=== PATIENT | male | born 1995 | race Caucasian/White ===

== ENCOUNTER 2017-03-03 22:53 | Observation (INO) | payer BC ==
[~2017-03-03] VITALS: Ht 177.8 cm; Wt 100.3 kg
--- NOTE | ~2017-03-03 | HP ---
[facility] 22 Y [address] ROOM: [place] [address] LOCATION: GPCU ADMIT DATE: 03/04/2017 History & Physical DISCHARGE DATE: FAMILY PHYSICIAN: Debi Downey MD ATTENDING PHYSICIAN: TONJA SEAY DATE OF SERVICE: PRIMARY CARE PHYSICIAN: None. CHIEF COMPLAINT: Nausea, vomiting, and diarrhea. HISTORY OF PRESENT ILLNESS: This is a 22-year-old male, who presented to the ER with nausea, vomiting, and diarrhea. The patient states that he started having diarrhea, nausea, and vomiting sometime this evening. He has had multiple episodes of vomiting more than 10 and also multiple episodes of diarrhea more than 10. He describes his stool as watery with some red tinge to it. He currently is dry heaving even after treatment with medications in the ER. He also complains of generalized abdominal pain, worse in the mid upper abdomen radiating through his back. No chest pain or shortness of breath reported. He is lightheaded when he stands up. Denies any head trauma, loss of consciousness, or seizures. Denies any fever history. No other complaints at this point in time. REVIEW OF SYSTEMS: A 10-point review of systems was done and was otherwise negative except as mentioned above. HOME MEDICATIONS: None. ALLERGIES: PENICILLIN. SOCIAL HISTORY: Nonsmoker, occasional alcohol is reported. PAST MEDICAL HISTORY: 1. Anxiety disorder. 2. Panic attack. 3. Depression. PAST SURGICAL HISTORY: PATIENT'S NAME: JEOVANY, [facility] AGE: 22 Y [address] ROOM: [place] [address] LOCATION: GPCU ADMIT DATE: 03/04/2017 History & Physical DISCHARGE DATE: FAMILY PHYSICIAN: Debi Downey MD ATTENDING PHYSICIAN: TONJA SEAY None. PHYSICAL EXAMINATION: VITAL SIGNS: Temperature 99.8, pulse 85 and regular, respirations 16, blood pressure 137/84, saturation 96% on room air. GENERAL: The patient is alert and oriented x3, follows all commands. Moves all extremities, in no acute distress. HEENT: Head: Normocephalic, atraumatic. Pupils are equal, round, reactive to light. Extraocular muscles are intact. Nares clear. Throat clear. Mucous membranes are dry. NECK: Supple. No nuchal rigidity. HEART: Regular rate and rhythm. LUNGS: Clear to auscultation bilaterally. ABDOMEN: Soft, nontender, and nondistended. Bowel sounds are present. EXTREMITIES: No clubbing, cyanosis, or edema. VASCULAR: Pulses are 2+ distally bilaterally. NEUROLOGIC: The patient is alert and oriented x3, follows all commands. Moves all extremities. Cranial nerves 2 through 12 grossly intact. DIAGNOSTIC STUDIES: Lactate 2.7. Troponin I pending. CBC done in the ER showed a white count of 16.8, hemoglobin 16.7, hematocrit 48.4, platelets 283. A CMP showed sodium 142, potassium 3.6, chloride 108, bicarb 18, BUN 19, creatinine 1.0, glucose 116, calcium 9.4, total protein is 8.6, albumin 4.4, AST 17, ALT 30, alkaline phosphatase 101. Total bilirubin 0.5. Anion gap 19.6, globulin 4.2, GFR more than 60. PT 11.0, INR 1.0, and PTT 25. UA showed specific gravity 1.010 with a pH of 5.0, otherwise negative. Procalcitonin level 0.20, amylase 107, lipase 967. Chest x-ray was done and showed no acute cardiopulmonary abnormality. CT abdomen and pelvis with contrast was done and was found to be normal. EKG showed sinus rhythm with a rate of 82 beats per minute and no acute ST changes. LABORATORY DATA: Blood culture is pending. Urine culture pending. Stool studies were done in the ER and was found to be negative for C diff and O and P screen. Fecal WBC showed moderate white blood cells. Fecal occult blood test was positive. ASSESSMENT AND PLAN: A 22-year-old male, presenting with nausea, vomiting, diarrhea, and dehydration. 1. Nausea, vomiting, and diarrhea. The patient currently appears dehydrated. I will hydrate him aggressively with IV fluids. 2. Dehydration. Hydrate aggressively with IV fluids. 3. Leukocytosis. The patient appears to have viral versus bacterial illness at this point of time. His white count is elevated. I will place him on PATIENT'S NAME: DEBI THAYER [facility] AGE: 22 Y [address] ROOM: [place] [address] [facility] ADMIT DATE: 03/04/2017 History & Physical DISCHARGE DATE: FAMILY PHYSICIAN: Debi Downey MD ATTENDING PHYSICIAN: TONJA SEAY. Cultures are pending. Monitor for cultures. 4. Questionable pancreatitis. The patient has elevated lipase, but no changes on CT abdomen. Currently, his pain is very well controlled. We will keep him n.p.o. for now. Hydrate with IV fluids and Zofran for nausea. 5. Deep vein thrombosis prophylaxis. SCDs to legs. 6. Code status: FULL CODE. Discussed with the patient at the time of admission. TONJA SEAY MD MT/rosie /[id number] D: [id number] T: [id number] HISTORY & PHYSICAL
--- NOTE | ~2017-03-03 | ER ---
[facility] 22 Y [address] ROOM: [place] [address] LOCATION: [facility] ADMIT DATE: 03/03/2017 ER/Outpatient Report DISCHARGE DATE: FAMILY PHYSICIAN: Debi Downey MD ATTENDING PHYSICIAN: Ronaldo Lake Admission date and time are documented on the medical record. I saw the patient at 2315 hours. CHIEF COMPLAINT: Nausea, vomiting, diarrhea, anxiety, and abdominal pain. HISTORY OF PRESENT ILLNESS: This patient is a 22-year-old male who comes in with a 2-hour history of nausea, vomiting, and diarrhea. He has had 7 episodes of vomiting and 7 episodes of diarrhea prior to coming in the emergency room. He had diarrhea and vomiting here in the emergency department. He has generalized abdominal pain worse in the midupper abdomen and radiates through to his back. No chest pain or shortness of breath. No lightheadedness, dizziness, syncope, or near syncope. No fall or trauma. No headache, eyes, ears, nose, throat, neck, or spine pain. No urinary symptoms. No joint or muscle swelling, redness, or pain. No skin eruptions or rash. The patient does have a history of anxiety, panic attacks, probably depression, but no psychosis. No endocrine problems. No neuro changes. No skin eruptions or rash. HOME MEDICATIONS: None. ALLERGIES: PENICILLIN. SOCIAL HISTORY: Nonsmoker. Does drink alcohol. SIGNIFICANT PAST MEDICAL HISTORY: Anxiety, panic attacks, and depression. OPERATIONS: None. REVIEW OF SYSTEMS: All systems reviewed by me are negative with the exception of those discussed in the history of the present illness. PHYSICAL EXAMINATION: PATIENT'S NAME: JEOVANY, [facility] AGE: 22 Y [address] ROOM: [place] [address] LOCATION: [facility] ADMIT DATE: 03/03/2017 ER/Outpatient Report DISCHARGE DATE: FAMILY PHYSICIAN: Debi Downey MD ATTENDING PHYSICIAN: Ronaldo Lake VITAL SIGNS: Temperature 98.3, tympanic, pulse 89, respirations 26, blood pressure 157/80, and O2 sat on room air is 100%. HEAD: Normocephalic. EYES, EARS, NOSE, THROAT: Clear. Mucous membranes moist. NECK: Negative. SPINE: Negative. LUNGS: Clear. No rales, rhonchi, or wheezes. HEART: Regular. Pulses are palpable. ABDOMEN: Soft, generalized tenderness especially in the midupper abdomen. No palpable masses. No bowel tones. No organomegaly or abnormal mass palpable. No CVA tenderness. EXTREMITIES: Intact. NEUROVASCULAR: Intact. SKIN: Clear. No skin eruptions or rash. IMAGING STUDIES: Three way abdominal x-ray showed no perforation, obstruction, or acute lung infiltrate. We will review x-ray with the radiologist. LABORATORY DATA: CMS was normal except for a slight low potassium of 3.6, low CO2 content of 18, elevated anion gap at 19.6, elevated glucose of 116, amylase was elevated at 107, and lipase was elevated at 967. White count was 16,800, 86 segs, 6 lymphs, 7 monos, 1 eo, hemoglobin was 16.7 with hematocrit of 48.4, and platelet count is 283,000. Stool was sent down for PCR and it showed no Giardia, no cryptosporidium, C. diff was negative, moderate white cells, and positive blood. Culture pending. EMERGENCY DEPARTMENT COURSE: I did start the patient on IV normal saline, fluids, gave him 2 L of normal saline here in the emergency department. I gave him Zofran IV for nausea, Phenergan IM for nausea, vomiting, and Dilaudid for pain. IMPRESSION: 1. Pancreatitis with abdominal pain, nausea, and vomiting. 2. Diarrhea. 3. Anxiety with a history of panic attacks. PLAN: Discuss the patient with Dr. Carlson, hospitalist. We will admit the patient to Med/Surg. Continue bowel rest and IV fluids. Discussed ensued with the patient and his concerning my findings and recommendations, they understand. PATIENT'S NAME: DEBI THAYER [facility] AGE: 22 Y [address] ROOM: [place] [address] LOCATION: [facility] ADMIT DATE: 03/03/2017 ER/Outpatient Report DISCHARGE DATE: FAMILY PHYSICIAN: Debi Downey MD ATTENDING PHYSICIAN: Ronaldo Lake MD MEGHANA GONZALEZ/modl /[id number] d: 03/04/17 0211 t: 03/04/17 1826, OUTPATIENT REPORT
--- NOTE | ~2017-03-03 | DS ---
PAT[facility]'S NAME: [facility] AGE: 22 Y [address] ROOM: [address] [address] LOCATION: [facility] ADMIT DATE: 03/04/2017 Discharge Summary DISCHARGE DATE: 03/05/2017 FAMILY PHYSICIAN: Debi Downey MD ATTENDING PHYSICIAN: Markos Carlson PRINCIPAL DIAGNOSIS: Infectious diarrhea. OTHER DIAGNOSES: 1. Nausea, vomiting, and dehydration. 2. Acute pancreatitis. HOSPITAL COURSE: A 22-year-old gentleman with no significant past medical history, was admitted with severe nausea, vomiting, and bloody diarrhea. He also complained of abdominal pain and a CAT scan of the abdomen was obtained, which was unremarkable. On initial evaluation, he was found to be hemoconcentrated. A CAT scan of the abdomen was done, which was unremarkable. He was found to have elevated lipase level around 950. He was admitted and stool studies were done, which were negative for C diff, but they were significant for occult blood as well as WBCs. We were not able to identify any infectious organism in this point, but given he was having temperature and bloody diarrhea including white cells in his stools, we treated it as infectious gastroenteritis with IV ciprofloxacin and Flagyl. He was aggressively volume resuscitated. On the day of the discharge, he was not having any more blood in the diarrhea and his stooling improved. He was discharged home on oral Flagyl as well as ciprofloxacin for 5 days. DISCHARGE MEDICATIONS: 1. Flagyl 500 mg p.o. q.8 hours for 5 days. 2. Ciprofloxacin 500 mg p.o. b.i.d. for 5 days. 3. Zofran 4 mg q.6 hours p.r.n. for nausea, vomiting, and diarrhea. ACTIVITIES: As tolerated. DIET: Advance diet as tolerated. DISCHARGE INSTRUCTIONS: The patient was instructed to come back to the emergency department if the stooling gets worse or if the symptoms return. MD RUSSELL ALFREDO/rosie PATIENT'S NAME: JEOVANY, [facility] AGE: 22 Y [address] ROOM: [address] [place], [place] [address] LOCATION: [facility] ADMIT DATE: 03/04/2017 Discharge Summary DISCHARGE DATE: 03/05/2017 FAMILY PHYSICIAN: Debi Downey MD ATTENDING PHYSICIAN: Markos Carlson /[id number] d: 03/06/17 0643 t: 03/07/17 1526, DISCHARGE SUMMARY
[2017-03-04 00:01] LABS: BASOPHIL % 0.2 %; EOSINOPHIL # 0.2 K/uL (0.0-0.5); EOSINOPHIL % 0.9 %; HEMATOCRIT 48.4 % (37.0-53.0); HEMOGLOBIN 16.7 g/dL (12.0-17.0); IMMATURE GRANULOCYTE # 0.1 K/uL (0.0-0.3); IMMATURE GRANULOCYTE % 0.4 %; LYMPHOCYTE % 5.7 %; MCH 29.4 pg (27.0-34.0); MCHC 34.5 gm/dL (32.0-36.5); MCV 85.2 fl (83.0-98.0); MONOCYTE # 1.2 K/uL (0.0-1.0); MONOCYTE % 6.9 %; MPV 9.8 fl (9.4-12.4); NEUTROPHIL # (ANC) 14.4 K/uL (1.4-9.0); NEUTROPHIL % 85.9 %; NRBC % 0 /100WBC (0-0.00); PLATELET COUNT 283 K/uL (150-450); RBC 5.68 M/uL (4.00-6.00); RDW-CV 11.8 % (11.9-14.6)
[2017-03-04 00:02] LABS: WBC 16.8 K/uL (4.0-11.0)
[2017-03-04 00:20] LABS: ALBUMIN 4.4 gm/dL (3.5-5.0); ALK PHOS 101 IU/L (33-138); ALT 30 IU/L (12-78); ANION GAP 19.6 (10.0-19.0); AST 17 IU/L (10-40); BLOOD UREA NITROGEN 19 mg/dL (6-24); CALCIUM 9.4 mg/dL (8.5-10.5); CHLORIDE 108 mMol/L (96-110); CO2 18 mMol/L (22-32); ESTIMATED GFR (MDRD EQUATION) > 60; POTASSIUM 3.6 mMol/L (3.7-5.1); SODIUM 142 mMol/L (135-145); TOTAL BILIRUBIN 0.5 mg/dL (0.0-1.5); TOTAL PROTEIN 8.6 g/dL (6.0-8.4)
[2017-03-04 02:23] LABS: BILIRUBIN URINE NEGATIVE (NEGATIVE); BLOOD URINE NEGATIVE /UL (NEGATIVE); GLUCOSE URINE NEGATIVE (NEGATIVE); KETONE URINE 15 mg/dL (NEGATIVE); LEUKOCYTES URINE NEGATIVE /UL (NEGATIVE); NITRITE URINE NEGATIVE (NEGATIVE); PROTEIN URINE NEGATIVE (NEGATIVE); UROBILINOGEN URINE NORMAL (NORMAL)
[2017-03-04 02:30] LABS: COLOR URINE YELLOW (YELLOW); TURBIDITY URINE CLEAR (CLEAR)
[2017-03-04] MEDS ORDERED: ADVIL200 M1 PO (03:44)
--- NOTE | 2017-03-04 04:16 | NUR ---
PATIENT ADMITTED WITH PANCREATITIS. STATES HE HAS HAD NAUSEA/VOMITTING/DIARRHEA BEGINNING YESTERDAY AFTERNOON. ELEVATED LYPASE/AMYLASE. EDUCATED PATIENT ON USE OF CALL LIGHT. AT BEDSIDE. IV R) HAND. EMESIS OF 100ML ZOFRAN GIVEN. BMx1 LIQUID
[2017-03-04 05:39] LABS: HEMATOCRIT 42.4 % (37.0-53.0); HEMOGLOBIN 14.5 g/dL (12.0-17.0); MCH 29.6 pg (27.0-34.0); MCHC 34.2 gm/dL (32.0-36.5); MCV 86.5 fl (83.0-98.0); MPV 9.9 fl (9.4-12.4); PLATELET COUNT 244 K/uL (150-450); WBC 10.8 K/uL (4.0-11.0)
[2017-03-04 05:54] LABS: ALBUMIN 3.4 gm/dL (3.5-5.0); ALK PHOS 76 IU/L (33-138); ALT 23 IU/L (12-78); BLOOD UREA NITROGEN 15 mg/dL (6-24); CALCIUM 8.1 mg/dL (8.5-10.5); CHLORIDE 111 mMol/L (96-110); CO2 20 mMol/L (22-32); ESTIMATED GFR (MDRD EQUATION) > 60; TOTAL BILIRUBIN 0.5 mg/dL (0.0-1.5); TOTAL PROTEIN 6.7 g/dL (6.0-8.4)
[2017-03-04 05:55] LABS: ANION GAP 16.2 (10.0-19.0); AST 18 IU/L (10-40); POTASSIUM 4.2 mMol/L (3.7-5.1)
[2017-03-04 05:56] LABS: SODIUM 143 mMol/L (135-145)
[2017-03-04 07:17] LABS: ABSOLUTE NEUTROPHIL CT (ANC) 10.3 K/uL (1.4-9.0); BANDED NEUTROPHIL # 3.8 K/uL (0.0-0.1); BANDED NEUTROPHILS % 35 %; LYMPHOCYTE # 0.3 K/uL (0.8-4.0); LYMPHOCYTE % 3 %; MONOCYTE # 0.4 K/uL (0.0-1.0); SEGMENTED NEUTROPHIL # 6.5 K/uL (1.4-9.0); SEGMENTED NEUTROPHIL % 60 %
--- NOTE | 2017-03-04 13:37 | NUR ---
PATIENT TRANSFERED TO 3N ROOM 3315 VIA WHEELCHAIR ACCOMPANIED BY FAMILY, RN AND BELONGINGS. VERBAL REPORT GIVEN TO PIA TRIPLETT AT BEDSIDE. NS CONTINUED AT 100ML/HR VIA R) HAND PIV WITH ANTIBIOTIC CURRENTLY RUNNING SCHEDULED. DILAUDID 0.2MG IVP GIVEN LAST AT 1300 PRIOR TO TRANSFER. UP TO BATHROOM AD BEVERLEY WITH VOID AND LOOSE BM X1. NO EMESIS THIS SHIFT. LAST TEMP 100.2 AT 1145. RECHECKED ON 3N WITH IMPROVEMENT OF 99.2. TELEMETRY CONTINUED HR 100-120'S. OTHER VSS ON RA.
--- NOTE | 2017-03-04 16:43 | NUR ---
Significant Event: Pt transferred from PCU today around 1300. VSS. CSM WNL. IV intact. Strict NPO. Remains on IVF. Up ad emmanuel. Numerous loose stools. C-Diff test was negative along with O&P. Amylase and Lipase elevated. Ruling out pancreatitis. Remains on IVF. Pain controlled with IV Dilaudid PRN. Follow up:
--- NOTE | 2017-03-05 03:44 | NUR ---
Significant Event: A/O X 3. FACE FLUSHED, TEMP 99.3 AND 99.2 TYMPANIC. HAD ZOFRAN IV FOR PRE MEDICATED FOR NAUSEA AT 2310. PATIENT PAIN RATE 5 AT 2310. PATIENT SLEPT AFTER NAUSEA MED GIVEN. AT 0300 PAIN RATED 2, OFFERED PAIN MED BUT PATIENT REFUSED AT THIS TIME, WAS COMFORTABLE. HAD BEEN UP TO BR X 2 VOIDS, YELLOW SIGNAL TIMER YELLOW LAST VOID. HAD 2 SMALL LOOSE BROWN-GREEN BM'S. PASSING FLATUS. TAKEN ALL OF JELLO, APPROX 1/4 OF BROTH AND TEA, SIPS OF WATER. NO VOMITING. ABDOMEN DIRECTOR FOOD SAFETY TO TOUCH. BILATERAL CALF PUMPS ON. STAYED THE NOC AT BEDSIDE, ASSISTED IN CARES. Follow up:
[2017-03-05 06:41] LABS: BASOPHIL % 0.5 %; EOSINOPHIL # 0.2 K/uL (0.0-0.5); HEMATOCRIT 38.2 % (37.0-53.0); HEMOGLOBIN 12.8 g/dL (12.0-17.0); IMMATURE GRANULOCYTE % 0.5 %; LYMPHOCYTE # 1.8 K/uL (0.8-4.0); LYMPHOCYTE % 29.7 %; MCH 29.2 pg (27.0-34.0); MCHC 33.5 gm/dL (32.0-36.5); MCV 87.2 fl (83.0-98.0); MONOCYTE # 0.8 K/uL (0.0-1.0); MPV 9.5 fl (9.4-12.4); NEUTROPHIL # (ANC) 3.1 K/uL (1.4-9.0); NEUTROPHIL % 52.3 %; NRBC % 0 /100WBC (0-0.00); PLATELET COUNT 195 K/uL (150-450); RBC 4.38 M/uL (4.00-6.00); RDW-CV 12.1 % (11.9-14.6)
[2017-03-05 06:59] LABS: ANION GAP 13.7 (10.0-19.0); BLOOD UREA NITROGEN 15 mg/dL (6-24); CHLORIDE 111 mMol/L (96-110); CO2 23 mMol/L (22-32); CREATININE 0.9 mg/dL (0.6-1.3); ESTIMATED GFR (MDRD EQUATION) > 60; POTASSIUM 3.7 mMol/L (3.7-5.1); SODIUM 144 mMol/L (135-145)
--- NOTE | 2017-03-05 10:00 | NUR ---
Introduced self/role to patient and his Mina. They live here in [place]. They could not think of anything they would need related to this stay or resources in the community. Wrote my name on his marker board, will continue to follow.
[2017-03-05] MEDS ORDERED: CIPRO500 MG PO (12:49)
[2017-03-05] MEDS ORDERED: FLAGYL500 MG PO (12:50)
[2017-03-05] MEDS ORDERED: ZOFRAN4 MG PO (12:52)
--- NOTE | 2017-03-05 14:01 | NUR ---
pt given discharge instructions and voices understadning. at pt's side and also voices understanding. medications reviewed. pt secorted to the front door by this nurse. at pt's side.
== END 2017-03-05 13:45 | disposition disaster alternative care site (69) ==
LOC: GMED 22:53 → GPCU 03-04 02:46 → G3N 03-04 13:38
PROVIDERS: Emergency Medicine; Internal Medicine; ADMIT Family Medicine
DX: A09 Infectious gastroenteritis and colitis, unspecified (principal); K85.90 Acute pancreatitis without necrosis or infection, unspecified; E86.0 Dehydration; R11.2 Nausea with vomiting, unspecified; F41.9 Anxiety disorder, unspecified; F32.9 Major depressive disorder, single episode, unspecified; F41.0 Panic disorder [episodic paroxysmal anxiety]; I82.409 Acute embolism and thrombosis of unspecified deep veins of unspecified lower extremity; Z88.0 Allergy status to penicillin
CPT/HCPCS: C9113; G0378; J0744; J1170; J2405; J2550; J7030; J7040; J7120; Q9967